=== PATIENT | female | born 1990 | race Hispanic/Latino ===

== ENCOUNTER 2017-12-28 19:24 | Emergency (ER) | payer BC, MEDICAID, OTHER ==
[2017-12-28] MEDS ORDERED: ACETAMINOPHEN EXTRA STRENGTH 500 MG TABLET ONE (19:52)
[2017-12-28] MEDS ORDERED: IPRATROPIUM/ALBUTEROL SULFATE 3 ML SOLUTION IH ONE (19:57)
[2017-12-28 20:19] LABS: RAPID GROUP A STREP NEGATIVE (NEGATIVE)
== END 2017-12-28 21:04 | disposition home or self-care (01) ==
LOC: EDH 19:24
DX: J20.9 Acute bronchitis, unspecified (principal); J02.9 Acute pharyngitis, unspecified; Z88.0 Allergy status to penicillin; Z98.51 Tubal ligation status; Z90.710 Acquired absence of both cervix and uterus
CPT/HCPCS: 71045; 81025; 87804; 87880; 94640